=== PATIENT | female | born 1960 | race Caucasian/White ===

== ENCOUNTER → 2016-12-31 | Outpatient (CLI) | payer BC | END | disposition home or self-care (01) | LOC: C.PAPS 17:35 | PROVIDERS: ATTEND Internal Medicine | DX: Z01.419 Encounter for gynecological examination (general) (routine) without abnormal findings (principal) ==

== ENCOUNTER → 2017-01-01 | Outpatient (CLI) | payer BC ==
[2017-01-01 13:43] LABS: BASO % 0.4 %; BASO ABS # 0.02 K/uL (0-0.2); COMPLETE YES; EOS % 2.3 %; HEMATOCRIT 40.3 % (37-47); IG% 0.2 %; LYMPH % 20.8 %; LYMPH ABS # 0.99 K/uL (1.2-3.4); MEAN CELL VOLUME 86.5 fL (80-100); MEAN CORPUSCULAR HGB CONC 33.5 g/dl (32-36); MEAN PLATELET VOLUME 10.4 fL (7.4-10.4); MONO % 10.3 %; PLATELET COUNT 253 K/uL (130-400); RED BLOOD COUNT 4.66 M/uL (4.2-5.4); WHITE BLOOD COUNT 4.76 K/uL (4.8-10.8)
[2017-01-01 13:47] LABS: ALT/SGPT 19 U/L (12-78); AST/SGOT 13 U/L (15-37); BLOOD UREA NITROGEN 18 mg/dl (7-18); BUN/CREATININE RATIO 26.5 (10-20); CALCIUM 8.7 mg/dl (8.5-10.1); CARBON DIOXIDE 25 mmol/L (21-32); CHLORIDE 107 mmol/L (98-107); CHOLESTEROL 190 mg/dl (0-200); CREATININE 0.68 mg/dl (0.60-1.20); GLUCOSE 92 mg/dl (70-99); POTASSIUM 4.1 mmol/L (3.5-5.1); SODIUM 138 mmol/L (136-145)
[2017-01-01 13:58] LABS: ALB/GLOB RATIO 1.1 (0.9-2); ALKALINE PHOSPHATASE 51 U/L (45-117); CHOLESTEROL/HDL RATIO 2.6; HDL CHOLESTEROL 73 mg/dl; TRIGLYCERIDES 73 mg/dl (0-150); VERY LOW DENSITY LIPOPROT CALC 15 mg/dl
== END | disposition home or self-care (01) ==
LOC: C.LABSPEC 12:23
PROVIDERS: ATTEND Internal Medicine
DX: E78.5 Hyperlipidemia, unspecified (principal); D25.9 Leiomyoma of uterus, unspecified; Z11.8 Encounter for screening for other infectious and parasitic diseases; E01.0 Iodine-deficiency related diffuse (endemic) goiter

== ENCOUNTER → 2017-01-01 | Outpatient (CLI) | payer BC ==
--- NOTE | 2017-01-01 14:54 | DIAGNOSTIC IMAGING REPORT ---
ULTRASOUND OF THE PELVIS CLINICAL HISTORY: Fibroid uterus. COMPARISON STUDY: Pelvic ultrasound dated 01/01/2016. TECHNIQUE: Real-time, grayscale, and color flow sonography of the pelvis is performed both transabdominally and endovaginally. Images are reviewed in the transverse and longitudinal planes. FINDINGS: Uterus: The retroverted uterus is bulbous in configuration and heterogeneous in echotexture, measuring left and 0.9 x 6.3 x 7.8 cm. Nabothian cysts are incidentally noted in the cervix. Endometrium: The endometrium is normal in appearance, and the endometrial stripe is normal in thickness measuring up to 0.4 cm. Ovaries: The ovaries are normal in size and morphology. The right ovary measures 3.4 x 2.1 x 2.2 cm and the left ovary measures 3.3 x 2.2 x 2.7 cm. A 2.6 cm dominant follicle is noted on the left. Normal Doppler waveforms are shown within both ovaries. The right ovary was best seen on the transabdominal images. Pelvis: There is no free fluid in the cul-de-sac. No concerning adnexal lesion is seen. IMPRESSION: 1. Unchanged appearance of the uterus which is bulbous in configuration and heterogeneous in echotexture. The appearance favors adenomyosis. 2. The endometrial stripe measures up to 4 mm. 3. The ovaries are normal as imaged. Electronically signed by: Edilberto Baltazar M.D. 01/01/2017 2:52 PM Dictated Date/Time: 01/01/2017 2:49 PM
== END | disposition home or self-care (01) ==
LOC: C.ULTR 14:03
PROVIDERS: ATTEND Internal Medicine
DX: D25.9 Leiomyoma of uterus, unspecified (principal)

== ENCOUNTER → 2017-01-20 | Outpatient (CLI) | payer BC ==
--- NOTE | 2017-01-21 07:50 | MAMMOGRAPHY REPORT ---
BILATERAL DIGITAL SCREENING MAMMOGRAM TOMOSYNTHESIS WITH CAD: 01/20/2017 CLINICAL HISTORY: The patient reports pain in her right lateral breast. She also reports a right nuvia ast lump which she believe may have been present for some time. Personal history of breast cancer. TECHNIQUE: Breast tomosynthesis in addition to standard 2D mammography was performed. Current study was also evaluated with a Computer Aided Detection (CAD) system. COMPARISON: Comparison is made to exams dated: 10/23/2015 mammogram, 10/08/2014 mammogram, 09/21/2013 m ammogram, 09/16/2012 mammogram, 09/15/2011 mammogram, and 09/11/2010 mammogram - [facility]. BREAST COMPOSITION: The tissue of both breasts is extremely dense, which lowers the sensitivity of m ammography. FINDINGS: A square marker marquez the site of pain in the right upper outer quadrant reported to the t echnologist by the patient. There is an oval obscured mass in the right upper outer quadrant which m easures approximately 3.5 cm; it is unclear if this may correspond with the palpable lump or pain rep orted by the patient, however, ultrasound is recommended for further evaluation. This may represent a cyst. The remainder of both breasts are stable compared to prior exams, without suspicious masses, calcific ations, or areas of architectural distortion noted. There are stable postsurgical changes in the lef t lateral breast from prior lumpectomy. Bilateral scattered and clustered benign-appearing calcifica tions are stable compared to multiple prior exams. IMPRESSION: ACR BI-RADS CATEGORY 0: INCOMPLETE EVALUATION: NEED ADDITIONAL IMAGING EVALUATION The patient reported to the technologist a palpable lump and pain in the right breast. An oval obscur ed 2.5 cm mass is seen within the right upper outer quadrant, which could potentially correspond with the palpable lump and pain. Recommend ultrasound for further evaluation. The patient will be called to schedule an appointment. Approximately 10% of breast cancers are not detected with mammography. A negative mammographic report should not delay biopsy if a clinically suggestive mass is present. Patria Addison M.D. /:01/20/2017 15:32:45 [place] Sorter: Jessie ROOT)(Angelita), [facility] letter sent: [facility] 0 BI-RADS Code: ACR BI-RADS Category 0: Incomplete Evaluation: Need Additional Imaging Evaluation
== END | disposition home or self-care (01) ==
LOC: C.MAMM 14:14
PROVIDERS: ATTEND Internal Medicine
DX: Z12.31 Encounter for screening mammogram for malignant neoplasm of breast (principal); N63.11 Unspecified lump in the right breast, upper outer quadrant; Z85.3 Personal history of malignant neoplasm of breast

== ENCOUNTER → 2017-02-02 | Outpatient (CLI) | payer BC ==
--- NOTE | 2017-02-02 14:32 | MAMMOGRAPHY REPORT ---
ULTRASOUND OF RIGHT BREAST: 02/02/2017 CLINICAL HISTORY: The patient reports a tender palpable right breast lump since the beginning of Nove mber. The tenderness resolves when she takes ibuprofen. COMPARISON: Comparison is made to exams dated: 01/20/2017 mammogram, 10/23/2015 mammogram, 10/08/2014 m ammogram, 09/21/2013 mammogram, 09/16/2012 mammogram, and 09/15/2011 mammogram - [facility]. TECHNIQUE: Real-time targeted ultrasound of the right breast was performed. FINDINGS: Real-time, high-resolution targeted ultrasound was performed of the area of the palpable l ump pointed out by the patient, in the right breast at approximately 9 to 10:00 periareolar region. At the site of the palpable lump there is an oval circumscribed anechoic mass which measures 2.3 x 3. 3 x 1.6 cm. This corresponds with the obscured mass seen on the recent screening mammogram and is co nsistent with a benign simple cyst. Other smaller anechoic benign simple cysts were also seen, inclu ding a 1.8 x 1.8 cm simple cyst in the right 10:00 subareolar breast. No suspicious solid masses wer e evident. IMPRESSION: ACR BI-RADS CATEGORY 2: BENIGN The palpable right breast lump corresponds with a 3.3 cm benign simple cyst in the right 9 to 10:00 p eriareolar breast. There is no sonographic evidence of malignancy. Recommend clinical follow-up; as the mass is intermittently tender, ultrasound-guided aspiration could be performed for symptom relie f if the patient desires. Otherwise, recommend routine bilateral screening mammograms in one year. The patient was verbally notified of the results. Patria Addison M.D. /:02/02/2017 10:01:57 Perfumer: Maureen KILPATRICK(Erma)(M), [facility] letter sent: Normal 1/2 BI-RADS Code: ACR BI-RADS Category 2: Benign
== END | disposition home or self-care (01) ==
LOC: C.MAMM 09:27
PROVIDERS: ATTEND Internal Medicine
DX: N63.10 Unspecified lump in the right breast, unspecified quadrant (principal)